=== PATIENT | female | born 1960 | race Caucasian/White ===

== ENCOUNTER → 2017-07-26 | Outpatient (CLI) | payer OTHER ==
--- NOTE | 2017-07-26 12:30 | PCVCIMAG ---
APPROVED REPORT Laterality: Bilateral Indications Stenosis Surgery/Intervention Endarterectomy: right Doppler Spectral Velocity Analysis PSV / EDVPSV / EDV ECA (R) 106 / 16 cm/sECA (L) 124 / 16 cm/s dICA (R) 81 / 26 cm/sdICA (L) 98 / 40 cm/s Victorina (R) 85 / 36 cm/smICA (L) 92 / 32 cm/s pICA (R) 49 / 17 cm/spICA (L) 82 / 37 cm/s Bulb (R) 73 / 19 cm/sBulb (L) 74 / 26 cm/s dCCA (R) 69 / 18 cm/sdCCA (L) 100 / 31 cm/s mCCA (R) 89 / 23 cm/smCCA (L) 106 / 34 cm/s Vert (R) 54 / 17 cm/sVert (L) 60 / 10 cm/s ICA/CCA 0.98 ICA/CCA 0.96 Real Time B-Mode Imaging Vert. (R)AntegradeVert. (L)Antegrade Findings The right carotid bulb has mild plaque. The right proximal internal carotid artery shows no significant stenosis. The right common carotid artery shows no significant stenosis. The right external carotid artery shows no significant stenosis. The left carotid bulb has mild plaque. The left proximal internal carotid artery shows no significant stenosis. The left common carotid artery shows no significant stenosis. The left external carotid artery shows no significant stenosis. Conclusion 1. Mild plaquing involving both carotid arteries without significant stenosis 2. Changes consistent with right carotid endarterectomy 3. Antegrade vertebral flow
== END | disposition home or self-care (01) ==
LOC: PCVCIMAG 11:46
PROVIDERS: ATTEND Internal Medicine Cardiovascular Disease
DX: I65.23 Occlusion and stenosis of bilateral carotid arteries (principal); I10 Essential (primary) hypertension; E78.2 Mixed hyperlipidemia; Z79.82 Long term (current) use of aspirin; Z88.6 Allergy status to analgesic agent
CPT/HCPCS: 80061; 93005; 93880; G0463

== ENCOUNTER → 2018-11-14 | Outpatient (CLI) | payer OTHER ==
--- NOTE | 2018-11-14 16:12 | PCVCIMAG ---
APPROVED REPORT Study performed: 11/14/2018 13:42:47 Exam: Stress Echocardiogram Indication: mild CAD, HTN, HLP, carotid arterial disease Patient Location: Echo lab Stress Nurse: Fior Coates RN Status: routine Ht: 5 ft 5 in HR: 74 bpm BP: 148/76 mmHg Rhythm: NSR Procedure The patient underwent an Exercise Stress Test using the Kelechi Protocol. Blood pressure, heart rate, and EKG were monitored. An Echocardiogram was performed by carpet technician in four stages in quad fashion. At peak stress, four selected images were obtained and placed side by side with resting images for comparison. Stress Test Details Stress Test: Exercise stress testing was performed using a Kelechi protocol. HR Resting HR: 74 bpmMax Heart Rate (APMHR): 163 bpm Max HR Achieved: 157 bpmTarget HR (85% APMHR): 138 bpm % of APMHR: 96 Recovery HR: 89 bpm HR response to stress: Normal HR response to stress BP Resting BP: 148/76 mmHg Max BP: 168/74 mmHg Recovery BP: 128/70 mmHg BP response to stress: Normal blood pressure response to stress. ECG Resting ECG: Sinus Rhythm Stress ECG: Sinus Rhythm ST Change: Normal Arrhythmia: occasional PVC Recovery ECG: Sinus Rhythm Recovery ST Change: Normal Recovery Arrhythmia: None Clinical Reason for Termination: Maximal effort Stress Symptoms: Dyspnea Exercise duration: 10 min 31 sec Highest Stage Achieved: Stage 4: 4.2 mph at 16% grade. Exercise capacity: 13.4 METs Overall Exercise Capacity for Age: Normal Scale: Active Angina Score: None Pre-Stress Echo The resting Echocardiogram showed normal left ventricular contractility with an estimated Ejection Fraction of about >55%. Normal wall motion in all segments on baseline images. Post-Stress Echo The stress Echocardiogram showed normal left ventricular contractility with an estimated Ejection Fraction of about 65%. Normal augmentation of wall motion in all segments on post stress images. Clinical No clinical or ECG evidence for ischemia. Conclusion Clinical Response: Non-ischemic Exercise Capacity: Superior Stress ECG Response: Non-ischemic Stress Echo Images: Non-ischemic The left ventricle is normal in size and wall thickness in both the rest and stress images. Other Information Study Quality: Adequate <Conclusion> The left ventricle is normal in size and wall thickness in both the rest and stress images.
== END | disposition home or self-care (01) ==
LOC: PCVCIMAG 13:34
PROVIDERS: ATTEND Internal Medicine Cardiovascular Disease
DX: I65.23 Occlusion and stenosis of bilateral carotid arteries (principal); I10 Essential (primary) hypertension; E78.5 Hyperlipidemia, unspecified; I25.10 Atherosclerotic heart disease of native coronary artery without angina pectoris
CPT/HCPCS: 93325; 93351; 93880